=== PATIENT | female | born 1995 | race African-American/Black ===

== ENCOUNTER 2016-07-23 03:42 | Emergency (ER) | payer SELFPAY ==
[2016-03-05 11:46] VITALS: BP 136/71
[~2016-07-23] VITALS: Ht 167.6 cm; Wt 65.8 kg
[~2016-07-23 03:42] MED LIST: NAPR500T8 PO
--- NOTE | 2016-07-23 04:28 | ED.ADGEN ---
Past Medical History Past Medical History: No Pertinent History Additional Past Medical Histor: SEASONAL ALLERGIES Past Surgical History: No Surgical History Additional Information: 0.25 PPD Alcohol Use: Occasionally Drug Use: None Adult General Chief Complaint Chief Complaint: ANKLE PROBLEM HPI HPI Patient is a 21 year old woman, history of seasonal allergies, who presents to the emergency department with complaint of left ankle pain after a fall. Patient states that she drank a few glasses of wine, and was visiting the home of a friend, when she stepped out to view the back yard, did not really sit there was a small flight of steps leading out from the house. Patient states that she misstepped, twisting her ankle under her, and falling down. She states that she slid down the stairs. Did not strike her head, or neck. Denies loss of consciousness, denies any other pain or areas of complaints aside from her left ankle. Noted to have significant swelling in the lateral aspect left ankle. Patient states the event occurred about 30 minutes prior to arrival. Has not taken any medication prior to coming to the ED. No previous injuries. Review of Systems Review of Systems Constitutional: Denies fever or chills. [] Eyes: Denies change in visual acuity. [] HENT: Denies nasal congestion or sore throat. [] Respiratory: Denies cough or shortness of breath. [] Cardiovascular: Denies chest pain or edema. [] GI: Denies abdominal pain, nausea, vomiting, bloody stools or diarrhea. [] : Denies dysuria. [] Musculoskeletal: Denies back pain, complaining of left ankle pain. Integument: Denies rash. [] Neurologic: Denies headache, focal weakness or sensory changes. [] Endocrine: Denies polyuria or polydipsia. [] Lymphatic: Denies swollen glands. [] Psychiatric: Denies depression or anxiety. [] Current Medications Current Medications Current Medications Medications (Trade) Dose Ordered Sig/Elliott Start Time Stop Time Status Last Admin Dose Admin Naproxen (Naprosyn) 500 mg 1X ONCE 07/23/16 05:00 07/23/16 05:01 DC Allergies Allergies Allergies Coded Allergies Type Severity Reaction Last Updated Verified No Known Drug Allergies 03/05/16 No Physical Exam Physical Exam Constitutional: Well developed, well nourished, no acute distress, non-toxic appearance. [] HENT: Normocephalic, atraumatic, bilateral external ears normal, oropharynx moist, no oral exudates, nose normal. [] Eyes: PERRLA, EOMI, conjunctiva normal, no discharge. [] Neck: Normal range of motion, no tenderness, supple, no stridor. [] Cardiovascular:Heart rate regular rhythm, no murmur, S1, S2, rubs or gallops. [] Lungs & Thorax: Bilateral breath sounds clear to auscultation , no wheezing, rhonchi, rales. No chest wall tenderness or crepitus. [] Abdomen: Bowel sounds normal, soft, no tenderness, no masses, no pulsatile masses. [] Skin: Warm, dry, no erythema, no rash. [] Back: No tenderness, no CVA tenderness. [] Extremities: Patient with significant swelling noted to the lateral malleolus, pulses are intact bilaterally, patient is moving her toes, does complain of some pain along the knee as well, although no deformity or signs of trauma in this region, no external signs of trauma, no abrasions or lacerations. In all other extremities tenderness, no cyanosis, no clubbing, ROM intact, no edema. [ ] Neurologic: Alert and oriented X 3, normal motor function, normal sensory function, no focal deficits noted. [] Psychologic: Affect normal, judgement normal, mood normal. [] Current Patient Data Vital Signs Vital Signs Date Time Temp Pulse Resp B/P Pulse Ox O2 Delivery O2 Flow Rate FiO2 07/23/16 03:50 98.3 58 16 98 Room Air 98.3 EKG EKG Not indicated. [] Radiology/Procedures Radiology/Procedures Left ankle: Three-view: Patient with a distal minimally displaced comminuted fracture of the fibula. Fracture at the base of the third metatarsal. No soft tissue or other bony injuries identified. As interpreted by me. Left knee: Three-view: No fracture subluxation identified, no soft tissue or bony abnormalities. As interpreted by me. Left foot: Three-view: Fracture of the third metatarsal, no other soft tissue or bony abnormalities identified. As interpreted by me. Course & Med Decision Making Course & Med Decision Making Pertinent Labs and Imaging studies reviewed. (See chart for details) Patient with fracture of the third metatarsal of the left foot, at the base, and a distal fibula fracture. No other injuries or concerning findings identified. A posterior short-leg splint was applied with good effect. Patient performed crutch walking in the emergency department without difficulty. 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 She was driven to the hospital by a friend. Patient to follow-up with Dr. Jasso of orthopedics, instructed to call this morning for an appointment. Patient voiced understanding and agreement with plan as stated, also with medication instructions and precautions, patient discharged home with plan as above. Dragon Disclaimer Dragon Disclaimer This electronic medical record was generated, in whole or in part, using a voice recognition dictation system. Departure Impression: Primary Impression: Ankle fracture, left Additional Impression: Foot fracture Disposition: HOME, SELF-CARE Condition: IMPROVED Scripts Oxycodone/Apap 5-325 (Percocet 5-325 Mg Tablet)1 Each Tablet1 Tab PO PRN Q6HRS PRN PAIN #12 TAB Ref 0 Prov:PAPA FITZGERALD DO 07/23/16 Naproxen 250 Mg [id number] Mg PO BID PRN PAIN #10 Prov:PAPA FITZGERALD DO 07/23/16 Problem Qualifiers PAPA FITZGERALD DO Jul 23, 2016 04:28
[2016-07-23] MEDS ORDERED: NAPROXEN 500 MG TABLET PO ONE (05:00)
[2016-07-23] MEDS ORDERED: NAPR250T2 PO (05:32)
[2016-07-23] MEDS ORDERED: OXYC-323 PO (05:32)
--- NOTE | 2016-07-23 07:18 | RAD ---
Left knee, 3 views, 07/23/2016: History: Fall, pain and swelling No fracture or dislocation is identified. No significant joint effusion is evident. IMPRESSION: No acute left knee abnormality is detected. Left ankle, 3 views, 07/23/2016: There is a nondisplaced fracture of the distal fibula. The distal tibia is intact. No ankle dislocation is evident. There is moderate diffuse soft tissue swelling over the lateral malleolus. IMPRESSION: Acute nondisplaced fracture of the distal fibula. Left tibia and fibula, 2 views, 07/23/2016 No additional fracture or bony abnormality is detected. Left foot, 3 views, 07/23/2016: There is a fracture of the proximal third metatarsal. The fracture appears to be slightly comminuted with involvement of the proximal articular surface. No dislocation is evident. There is a lucency projected over the distal aspect of the cuboid bone laterally compatible with a small nondisplaced fracture. There is moderate subcutaneous edema about the foot. IMPRESSION: 1. Proximal third metatarsal fracture. 2. Small cuboid bone fracture.
== END 2016-07-23 05:39 | disposition home or self-care (01) ==
LOC: ER 03:42
DX: S82.452A Displaced comminuted fracture of shaft of left fibula, initial encounter for closed fracture (principal); S92.332A Displaced fracture of third metatarsal bone, left foot, initial encounter for closed fracture; F17.200 Nicotine dependence, unspecified, uncomplicated; X50.1XXA Overexertion from prolonged static or awkward postures, initial encounter; Y93.89 Activity, other specified; Y92.89 Other specified places as the place of occurrence of the external cause; Y99.8 Other external cause status
CPT/HCPCS: 29515; 73562; 73590; 73610; 73630; 99284-25

== ENCOUNTER 2017-01-11 14:57 | Emergency (ER) | payer SELFPAY ==
[~2017-01-11] VITALS: Ht 170.2 cm; Wt 68.0 kg
[~2017-01-11 14:57] MED LIST changes: +NAPR250T6 PO; +OXYC-323 PO
[2017-01-11 15:05] VITALS: BP 126/78
--- NOTE | 2017-01-11 15:28 | PHYS DOC ---
Past Medical History Past Medical History: Other Additional Past Medical Histor: SEASONAL ALLERGIES, foot fx left Past Surgical History: No Surgical History Alcohol Use: Occasionally Drug Use: None Adult General Chief Complaint Chief Complaint: FOOT INJURY PAIN HPI HPI Patient is a 21 year old female states the had fractured her left foot 6 months ago. She states she has been having numbness and tingling to the toes for the last 4 months. Patient states last night she decided to wear high heels and developed increase left foot and ankle pain. She states she continues to have swelling to the foot. She has been taking Naproxen for the pain. Review of Systems Review of Systems Constitutional: Denies fever or chills [] Eyes: Denies change in visual acuity, redness, or eye pain [] HENT: Denies nasal congestion or sore throat [] Respiratory: Denies cough or shortness of breath [] Cardiovascular: No additional information not addressed in HPI [] GI: Denies abdominal pain, nausea, vomiting, bloody stools or diarrhea [] : Denies dysuria or hematuria [] Musculoskeletal: Denies back pain. Left foot and ankle pain Integument: Denies rash or skin lesions [] Neurologic: Denies headache, focal weakness or sensory changes [] Endocrine: Denies polyuria or polydipsia [] Allergies Allergies Allergies Coded Allergies Type Severity Reaction Last Updated Verified No Known Drug Allergies 03/05/16 No Physical Exam Physical Exam Constitutional: Well developed, well nourished, no acute distress, non-toxic appearance. [] HENT: Normocephalic, atraumatic, bilateral external ears normal, oropharynx moist, no oral exudates, nose normal. [] Eyes: PERRLA, EOMI, conjunctiva normal, no discharge. [] Neck: Normal range of motion, no tenderness, supple, no stridor. [] Cardiovascular:Heart rate regular rhythm Lungs & Thorax: no respiratory distress noted Skin: Warm, dry, no erythema, no rash. [] Back: No tenderness Extremities: Left lateral ankle and left foot tenderness, no cyanosis, no clubbing, ROM intact, no edema. No significant swelling, no discoloration noted. Neurologic: Alert and oriented X 3, normal motor function, normal sensory function, no focal deficits noted. [] Psychologic: Affect normal, judgement normal, mood normal. [] Current Patient Data Vital Signs Vital Signs Date Time Temp Pulse Resp B/P (MAP) Pulse Ox O2 Delivery O2 Flow Rate FiO2 01/11/17 15:05 97.8 97 16 100 Room Air 97.8 EKG EKG [] Radiology/Procedures Radiology/Procedures [][id number] [place] [address] IMAGING REPORT Signed PATIENT: ALLISON MANUEL ACCOUNT: [id number] : 1995 LOCATION: ER AGE: 21 SEX: F EXAM STATUS: REG ER ORD. PHYSICIAN: ARRON STERLING APRN REASON: amkle pain after wearing heels last night PROCEDURE: ANKLE LEFT 3V Indications: History of fracture of the fibula 6 months ago. New onset of lateral side foot and ankle pain. 3 view left foot study: No acute fracture or dislocation or osteolytic process is seen. 3 view left ankle study: There is a nondisplaced oblique fracture of the distal left fibular shaft. The fracture appears healed. No acute radiolucent fracture line is seen. The mortise ankle joint is intact. IMPRESSION: Old healed fracture of the distal left fibula. No acute-appearing fracture. Electronically signed by: Erlin Luo MD (01/11/2017 4:31 PM) [facility] DICTATED and SIGNED BY: ERLIN LUO MD DATE: 01/11/17 1629 CC: ARRON STERLING APRN; NO PCP ~ [address] [address] IMAGING REPORT Signed PATIENT: ALLISON MANUEL ACCOUNT: [id number] : 1995 LOCATION: ER AGE: 21 SEX: F EXAM STATUS: REG ER ORD. PHYSICIAN: ARRON STERLING APRN REASON: hx of fracture 6 months ago, wore high heels last night increase pain lat PROCEDURE: FOOT LEFT 3V Indications: History of fracture of the fibula 6 months ago. New onset of lateral side foot and ankle pain. 3 view left foot study: No acute fracture or dislocation or osteolytic process is seen. 3 view left ankle study: There is a nondisplaced oblique fracture of the distal left fibular shaft. The fracture appears healed. No acute radiolucent fracture line is seen. The mortise ankle joint is intact. IMPRESSION: Old healed fracture of the distal left fibula. No acute-appearing fracture. Electronically signed by: Erlin Luo MD (01/11/2017 4:31 PM) [facility] DICTATED and SIGNED BY: ERLIN LUO MD DATE: 01/11/17 1629 CC: ARRON STERLING APRN; NO PCP ~ Course & Med Decision Making Course & Med Decision Making Pertinent Labs and Imaging studies reviewed. (See chart for details) X-rays were negative for any bony abnormalities. It did however show the past fracture that she's had 6 months ago. Patient will be placed in Tee wrap and a postop shoe. She was recommended to use ice packs and elevation as much as possible. Patient was encouraged to continue to use naproxen for pain and discomfort. Recommended when she has brakes at work to ice and elevated. Also patient was provided with signs and symptoms to return back to emergency department. Recommended that she follow-up with her orthopedic in the next week. Patient agrees with discharge instructions treatment regimens and follow- up recommendations. [] Dragon Disclaimer Dragon Disclaimer This electronic medical record was generated, in whole or in part, using a voice recognition dictation system. Departure Departure Impression: Primary Impression: Left foot pain Additional Impression: Left ankle pain Disposition: 01 HOME, SELF-CARE Condition: STABLE Referrals: NO PCP (PCP) BUCK ARCEO II, MD Patient Instructions: Ankle Sprain, Foot Sprain-Brief Additional Instructions: Activity as tolerate Avoid wearing high heel shoes. Tee wrap for the next week Post op shoe for the next week Ice packs on 20 minutes and off 20 minutes several times a day Elevation as much as possible Followup with orthopedic in 1 week' Return to emergency department as needed for signs and symptoms that become worse. Problem Qualifiers Additional Impression: Left ankle pain Chronicity: unspecified Qualified Codes: M25.572 - Pain in left ankle and joints of left foot ARRON STERLING APRN Jan 11, 2017 15:27
--- NOTE | 2017-01-11 16:35 | RAD ---
Indications: History of fracture of the fibula 6 months ago. New onset of lateral side foot and ankle pain. 3 view left foot study: No acute fracture or dislocation or osteolytic process is seen. 3 view left ankle study: There is a nondisplaced oblique fracture of the distal left fibular shaft. The fracture appears healed. No acute radiolucent fracture line is seen. The mortise ankle joint is intact. IMPRESSION: Old healed fracture of the distal left fibula. No acute-appearing fracture. Electronically signed by: Silverio Luo MD (01/11/2017 4:31 PM) [facility]
--- NOTE | 2017-01-11 16:35 | RAD ---
Indications: History of fracture of the fibula 6 months ago. New onset of lateral side foot and ankle pain. 3 view left foot study: No acute fracture or dislocation or osteolytic process is seen. 3 view left ankle study: There is a nondisplaced oblique fracture of the distal left fibular shaft. The fracture appears healed. No acute radiolucent fracture line is seen. The mortise ankle joint is intact. IMPRESSION: Old healed fracture of the distal left fibula. No acute-appearing fracture. Electronically signed by: Silverio Luo MD (01/11/2017 4:31 PM) [facility]
== END 2017-01-11 16:58 | disposition home or self-care (01) ==
LOC: ER 14:57
DX: M25.572 Pain in left ankle and joints of left foot (principal); R20.0 Anesthesia of skin; M79.672 Pain in left foot; R20.2 Paresthesia of skin; M79.89 Other specified soft tissue disorders
CPT/HCPCS: 73610; 73630; 99284

== ENCOUNTER 2017-11-30 21:12 | Emergency (ER) | payer OTHER | END 2017-11-30 23:55 | disposition home or self-care (01) | LOC: ER 23:55 | DX: S93.402A Sprain of unspecified ligament of left ankle, initial encounter (principal); W01.0XXA Fall on same level from slipping, tripping and stumbling without subsequent striking against object, initial encounter; X50.9XXA Other and unspecified overexertion or strenuous movements or postures, initial encounter; Y93.89 Activity, other specified; Y99.8 Other external cause status; Y92.89 Other specified places as the place of occurrence of the external cause | CPT/HCPCS: 29515; 73610; 99284-25 ==

== ENCOUNTER 2018-01-26 22:42 | Emergency (ER) | payer OTHER ==
[~2018-01-26] VITALS: Ht 167.6 cm; Wt 65.8 kg
[2018-01-27 00:06] VITALS: BP 129/86
[2018-01-27] MEDS ORDERED: NEOMY/BACITR/POLYMYXIN OINT PACKET. TP ONE (00:30)
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
== END 2018-01-27 00:23 | disposition home or self-care (01) ==
LOC: ER 22:42
DX: T24.212A Burn of second degree of left thigh, initial encounter (principal); X12.XXXA Contact with other hot fluids, initial encounter; Y93.89 Activity, other specified; Y92.89 Other specified places as the place of occurrence of the external cause; Y99.0 Civilian activity done for income or pay
CPT/HCPCS: 16000; 99284

== ENCOUNTER 2018-02-27 17:04 | Emergency (ER) | payer OTHER ==
[~2018-02-27] VITALS: Ht 170.2 cm; Wt 77.1 kg
[2018-02-27 17:44] LABS: BILIRUBIN,URINE NEGATIVE (NEG); CLARITY,URINE CLEAR; COLOR,URINE YELLOW; NITRITE,URINE NEGATIVE (NEG); PROTEIN,URINE NEGATIVE (NEG-TRACE)
[2018-02-27 17:58] LABS: BACTERIA,URINE 0 /HPF (0-FEW); RBC,URINE 0 /HPF (0-2); SQUAMOUS EPITHELIAL CELL,UR FEW /LPF; WBC,URINE RARE /HPF (0-4)
[2018-02-27] MEDS ORDERED: IV NORMAL SALINE 1000ML BAG 1,000 ML IV ONE (18:00)
[2018-02-27] MEDS ORDERED: fentaNYL PF VIAL 100 MCG/2 ML VIAL IV ONE (18:00)
[2018-02-27] MEDS ORDERED: ONDANSETRON PF 4 MG/2 ML VIAL. IV ONE (18:00)
[2018-02-27 18:13] LABS: BASO % 1 % (0-3); EOS # 0.4 x10^3/uL (0.0-0.7); EOS % 5 % (0-3); HEMATOCRIT 36.2 % (36.0-47.0); HEMOGLOBIN 12.1 g/dL (12.0-15.5); LYMPH # 2.8 x10^3/uL (1.0-4.8); LYMPH % 34 % (24-48); MEAN CORPUSCULAR HEMOGLOBIN 28 pg (25-35); MEAN CORPUSCULAR HGB CONC 33 g/dL (31-37); MEAN CORPUSCULAR VOLUME 85 fL (79-100); MONO # 0.8 x10^3/uL (0.0-1.1); MONO % 10 % (0-9); NEUT # 4.1 x10^3uL (1.8-7.7); NEUT % 51 % (31-73); PLATELET COUNT 236 x10^3/uL (140-400); RED BLOOD COUNT 4.28 x10^6/uL (3.50-5.40); RED CELL DISTRIBUTION WIDTH 13.8 % (11.5-14.5); WHITE BLOOD COUNT 8.1 x10^3/uL (4.0-11.0)
[2018-02-27 18:19] LABS: CALCIUM 9.2 mg/dL (8.5-10.1); CREATININE 0.8 mg/dL (0.6-1.0); GFR 106.6; POTASSIUM 4.2 mmol/L (3.5-5.1)
--- NOTE | 2018-02-27 18:20 | PHYS DOC ---
Past Medical History Past Medical History: No Pertinent History Additional Past Medical Histor: SEASONAL ALLERGIES, foot fx left Past Surgical History: No Surgical History Alcohol Use: None Drug Use: None Adult General Chief Complaint Chief Complaint: BACK PAIN OR INJURY HPI HPI Patient is a 22 year old female who presents with right flank and pelvic pain for the last 3-4 days. Patient reports the pain is worse with movement. She denies having taken anything at home for pain. She is unsure of her status. She denies any trauma to the area. She reports pain with intercourse, but denies vaginal discharge. She denies any loss of bladder or bowel control. Review of Systems Review of Systems Constitutional: Denies fever or chills [] Respiratory: Denies cough or shortness of breath [] Cardiovascular: Denies chest pain or palpitations GI: Reports right lower quadrant/pelvic pain that radiates from the right flank. Denies nausea, vomiting or diarrhea [] : Reports dyspareunia. Denies dysuria or hematuria [] Musculoskeletal: Reports right flank pain Integument: Denies rash or skin lesions [] Neurologic: Denies headache, focal weakness or sensory changes. Denies loss of bladder or bowel control [] All other systems were reviewed and found to be within normal limits, except as documented in this note. Current Medications Current Medications Current Medications Medications (Trade) Dose Ordered Sig/[facility] Start Time Stop Time Status Last Admin Dose Admin Fentanyl Citrate (Fentanyl 2ml Vial) 50 mcg 1X ONCE 02/27/18 18:00 02/27/18 18:01 DC Ondansetron HCl (Zofran) 4 mg 1X ONCE 02/27/18 18:00 02/27/18 18:01 DC Sodium Chloride 1,000 ml @ 1,000 mls/hr 1X ONCE 02/27/18 18:00 02/27/18 18:59 DC 02/27/18 18:02 1,000 MLS/HR Allergies Allergies Allergies Coded Allergies Type Severity Reaction Last Updated Verified No Known Drug Allergies 03/05/16 No Physical Exam Physical Exam Constitutional: Well developed, well nourished, no acute distress, non-toxic appearance. [] HENT: Normocephalic, atraumatic Eyes: PERRLA, EOMI, conjunctiva normal, no discharge. [] Neck: Normal range of motion, no tenderness, supple, no stridor. [] Cardiovascular:Heart rate regular rhythm, no murmur [] Lungs & Thorax: Bilateral breath sounds clear to auscultation [] Abdomen: Bowel sounds normal, soft, Right lower quadrant/pelvic pain Skin: Warm, dry, no erythema, no rash. [] Back: Right CVA tenderness. [] Neurologic: Alert and oriented X 3, normal motor function, normal sensory function, no focal deficits noted. [] Psychologic: Affect normal, judgement normal, mood normal. [] Current Patient Data Vital Signs Vital Signs Date Time Temp Pulse Resp B/P (MAP) Pulse Ox O2 Delivery O2 Flow Rate FiO2 02/27/18 18:30 120/66 (84) 02/27/18 17:30 98.3 100 18 97 Room Air 98.3 Lab Values Laboratory Tests Test 02/27/18 17:23 02/27/18 17:35 02/27/18 17:58 Urine Collection Type Unknown Urine Color Yellow Urine Clarity Clear Urine pH 7.0 Urine Specific [place] >=1.030 Urine Protein Negative mg/dL (NEG-TRACE) Urine Glucose (UA) Negative mg/dL (NEG) Urine Ketones (Stick) Negative mg/dL (NEG) Urine Blood Negative (NEG) Urine Nitrite Negative (NEG) Urine Bilirubin Negative (NEG) Urine Urobilinogen Dipstick 1.0 mg/dL (0.2 mg/dL) Urine Leukocyte Esterase Negative (NEG) Urine RBC 0 /HPF (0-2) Urine WBC Rare /HPF (0-4) Urine Squamous Epithelial Cells Few /LPF Urine Bacteria 0 /HPF (0-FEW) Urine Mucus Slight /LPF POC Urine HCG, Qualitative Hcg positive (Negative) White Blood Count 8.1 x10^3/uL (4.0-11.0) Red Blood Count 4.28 x10^6/uL (3.50-5.40) Hemoglobin 12.1 g/dL (12.0-15.5) Hematocrit 36.2 % (36.0-47.0) Mean Corpuscular Volume 85 fL (79-100) Mean Corpuscular Hemoglobin 28 pg (25-35) Mean Corpuscular Hemoglobin Concent 33 g/dL (31-37) Red Cell Distribution Width 13.8 % (11.5-14.5) Platelet Count 236 x10^3/uL (140-400) Neutrophils (%) (Auto) 51 % (31-73) Lymphocytes (%) (Auto) 34 % (24-48) Monocytes (%) (Auto) 10 % (0-9) H Eosinophils (%) (Auto) 5 % (0-3) H Basophils (%) (Auto) 1 % (0-3) Neutrophils # (Auto) 4.1 x10^3uL (1.8-7.7) Lymphocytes # (Auto) 2.8 x10^3/uL (1.0-4.8) Monocytes # (Auto) 0.8 x10^3/uL (0.0-1.1) Eosinophils # (Auto) 0.4 x10^3/uL (0.0-0.7) Basophils # (Auto) 0.0 x10^3/uL (0.0-0.2) Maternal Serum HCG Beta Subunit 18 mIU/mL (0-5) H Sodium Level 139 mmol/L (136-145) Potassium Level 4.2 mmol/L (3.5-5.1) Chloride Level 104 mmol/L (98-107) Carbon Dioxide Level 29 mmol/L (21-32) Anion Gap 6 (6-14) Blood Urea Nitrogen 12 mg/dL (7-20) Creatinine 0.8 mg/dL (0.6-1.0) Estimated GFR (Cockcroft-Gault) 106.6 BUN/Creatinine Ratio 15 (6-20) Glucose Level 88 mg/dL (70-99) Calcium Level 9.2 mg/dL (8.5-10.1) Total Bilirubin 0.1 mg/dL (0.2-1.0) L Aspartate Amino Transferase (AST) 14 U/L (15-37) L Alanine Aminotransferase (ALT) 18 U/L (14-59) Alkaline Phosphatase 41 U/L (46-116) L Total Protein 7.8 g/dL (6.4-8.2) Albumin 3.5 g/dL (3.4-5.0) Albumin/Globulin Ratio 0.8 (1.0-1.7) L Laboratory Tests 02/27/18 17:58 Laboratory Tests 02/27/18 17:58 EKG EKG [] Radiology/Procedures Radiology/Procedures PROCEDURE: OB <14 WKS W/TV Examination: OB <14 WKS W/TV History: rt sided abd pain, constipation, just found out she was preg, lmp 01/31/18

no gs or pole seen
small amt of simple ff in post cul de sac
iso ro lesion probable corpus luteum Comparison/Correlation: None Findings: OB ultrasound exam was performed. Transabdominal and transvaginal technique were utilized. Endometrium is markedly thickened measuring up to 1.3 cm. Myometrium is normal. Uterus measures 8.3 cm x 6 cm x 4.2 cm. Free fluid is present in the cul-de-sac. Right adnexa measures 2.5 cm x 3 cm a 2.6 cm. Left adnexa measures 3.3 cm x 2.2 cm x 2.5 cm. There is a right ovarian hypoechoic structure measuring 2 cm x 2.2 cm x 2.1 cm. Flow about this lesion is suggested. No flow within it. Impression: No intrauterine gestation. Right adnexal lesion is present. This may represent a corpus a cyst. Considering there is no intrauterine gestation and the patient is reportedly , consider interval follow-up serial beta hCG and follow-up ultrasound exam to assess for possible ectopic gestation. Pelvic free fluid is present and may be physiologic. Electronically signed by: Ivan Morris MD (02/27/2018 7:04 PM) [facility][] Course & Med Decision Making Course & Med Decision Making Pertinent Labs and Imaging studies reviewed. (See chart for details) Plan: repeat bhcg in 3 and 6 days. f/u with [employer] for f/u US. lortab rx, return precautions reviewed Rey Disclaimer Rey Disclaimer This electronic medical record was generated, in whole or in part, using a voice recognition dictation system. Departure Departure Impression: Primary Impression: Pelvic pain affecting in first trimester, antepartum Disposition: 01 HOME, SELF-CARE Condition: GOOD Referrals: SILVESTRE GOLDMAN Jr, MD Patient Instructions: Abdominal Pain During Additional Instructions: You will need to have your blood drawn on Friday and Friday of next week. You will need to call OB and let them know you are having pain and we could not rule out ectopic (tubal ). Scripts Hydrocodone/Apap 5-325 (NORCO 5-325 TABLET) 1 Each Tablet 1 TAB PO PRN Q6HRS PRN for PAIN, #14 TAB 0 Refills Prov: TEOFILO CORTEZ APRN 02/27/18 Attending Signature Attending Signature PI have reviewed the PA/BUFFER CHROME's note and plan of care. I was available for consultation as needed during the patient's visit in the emergency department. I agree with the clinical impression, plan, and disposition. TEOFILO CORTEZ APRN Feb 27, 2018 18:20 TIFFANI CHARLES DO Feb 28, 2018 17:00
[2018-02-27 18:27] LABS: ALBUMIN 3.5 g/dL (3.4-5.0); ALBUMIN/GLOBULIN RATIO 0.8 (1.0-1.7); TOTAL BILIRUBIN 0.1 mg/dL (0.2-1.0); TOTAL PROTEIN 7.8 g/dL (6.4-8.2)
[2018-02-27 18:30] VITALS: BP 120/66
--- NOTE | 2018-02-27 19:07 | RAD ---
Examination: OB <14 WKS W/TV History: rt sided abd pain, constipation, just found out she was preg, lmp 01/31/18

no gs or pole seen
small amt of simple ff in post cul de sac
iso ro lesion probable corpus luteum Comparison/Correlation: None Findings: OB ultrasound exam was performed. Transabdominal and transvaginal technique were utilized. Endometrium is markedly thickened measuring up to 1.3 cm. Myometrium is normal. Uterus measures 8.3 cm x 6 cm x 4.2 cm. Free fluid is present in the cul-de-sac. Right adnexa measures 2.5 cm x 3 cm a 2.6 cm. Left adnexa measures 3.3 cm x 2.2 cm x 2.5 cm. There is a right ovarian hypoechoic structure measuring 2 cm x 2.2 cm x 2.1 cm. Flow about this lesion is suggested. No flow within it. Impression: No intrauterine gestation. Right adnexal lesion is present. This may represent a corpus a cyst. Considering there is no intrauterine gestation and the patient is reportedly , consider interval follow-up serial beta hCG and follow-up ultrasound exam to assess for possible ectopic gestation. Pelvic free fluid is present and may be physiologic. Electronically signed by: Ivan Morris MD (02/27/2018 7:04 PM) [facility]
[2018-02-27] MEDS ORDERED: HYDR-971 PO (19:34)
[2018-03-02 15:27] LABS: GC PROBE Negative (Negative)
== END 2018-02-27 19:40 | disposition home or self-care (01) ==
LOC: ER 17:04
DX: O26.891 Other specified pregnancy related conditions, first trimester (principal); R10.2 Pelvic and perineal pain; R10.31 Right lower quadrant pain; Z3A.00 Weeks of gestation of pregnancy not specified
CPT/HCPCS: 36415; 76801; 76817; 80053; 81001; 81025; 84702; 85025; 87491; 87591; 99285; J7030; Q0111

== ENCOUNTER → 2018-03-02 | Outpatient (CLI) | payer OTHER ==
[2018-02-27 18:30] VITALS: BP 120/66
[~2018-03-02] MED LIST changes: +HYDR-3164 PO; -OXYC-323 PO; +OXYC1TAB15 PO
== END | disposition home or self-care (01) ==
LOC: LAB 09:18
PROVIDERS: ATTEND Obstetrics & Gynecology
DX: O26.891 Other specified pregnancy related conditions, first trimester (principal); Z3A.08 8 weeks gestation of pregnancy
CPT/HCPCS: 36415; 84702

== ENCOUNTER 2018-06-22 12:34 | Emergency (ER) | payer OTHER ==
[~2018-06-22] VITALS: Ht 167.6 cm; Wt 81.6 kg
[2018-06-22 13:24] VITALS: BP 130/76
--- NOTE | 2018-06-22 14:08 | RAD ---
EXAM: Left foot, 3 views. HISTORY: Fall. COMPARISON: None. FINDINGS: 3 views left foot are obtained. There is no fracture, dislocation or subluxation. IMPRESSION: No acute osseous finding. Electronically signed by: Laura Zaragoza MD (06/22/2018 2:05 PM) [place] [id number]
--- NOTE | 2018-06-22 14:27 | PHYS DOC ---
Past Medical History Past Medical History: No Pertinent History Additional Past Medical Histor: SEASONAL ALLERGIES, foot fx left Past Surgical History: No Surgical History Alcohol Use: None Drug Use: None Adult General Chief Complaint Chief Complaint: MECHANICAL FALL [facility] HPI Patient is a 22 year old female who presents with left foot pain after she fell on the ice chest today. She states that her knee went one direction and her foot twisted in the other. She is complaining of pain over the first metatarsal. She denies any other injury. She is able to bear weight on that extremity. Review of Systems Review of Systems Constitutional: Denies fever or chills [] Respiratory: Denies cough or shortness of breath [] Cardiovascular: No additional information not addressed in HPI [] GI: Denies abdominal pain, nausea, vomiting, bloody stools or diarrhea [] : Denies dysuria or hematuria [] Musculoskeletal: See history of present illness Integument: Denies rash or skin lesions [] Neurologic: Denies headache, focal weakness or sensory changes [] Endocrine: Denies polyuria or polydipsia [] All other systems were reviewed and found to be within normal limits, except as documented in this note. Allergies Allergies Allergies Coded Allergies Type Severity Reaction Last Updated Verified No Known Drug Allergies 03/05/16 No Physical Exam Physical Exam Constitutional: Well developed, well nourished, no acute distress, non-toxic appearance. [] Cardiovascular:Heart rate regular rhythm, no murmur [] Lungs & Thorax: Bilateral breath sounds clear to auscultation [] Abdomen: Bowel sounds normal, soft, no tenderness, no masses, no pulsatile masses. [] Skin: Warm, dry, no erythema, no rash. [] Back: No tenderness, no CVA tenderness. [] Extremities: tenderness over mid left first metatarsal, no gross deformity noted , no cyanosis, no clubbing, ROM intact, no edema. [] Neurologic: Alert and oriented X 3, normal motor function, normal sensory function, no focal deficits noted. [] Psychologic: Affect normal, judgement normal, mood normal. [] Current Patient Data Vital Signs Vital Signs Date Time Temp Pulse Resp B/P (MAP) Pulse Ox O2 Delivery O2 Flow Rate FiO2 06/22/18 13:24 98.2 88 16 130/76 (94) 100 Room Air 98.2 EKG EKG [] Radiology/Procedures Radiology/Procedures []PATIENT: ALLISON MANUEL SACCOUNT: [id number]#: [id number] : 1995 LOCATION: ER AGE: 22 SEX: F EXAM STATUS: REG ER ORD. PHYSICIAN: NADIR SALAS APRN REASON: fell on ice PROCEDURE: FOOT LEFT 3V EXAM: Left foot, 3 views. HISTORY: Fall. COMPARISON: None. FINDINGS: 3 views left foot are obtained. There is no fracture, dislocation or subluxation. IMPRESSION: No acute osseous finding. Electronically signed by: Laura Live MD (06/22/2018 2:05 PM) [place] [id number] DICTATED and SIGNED BY: LAURA LIVE MD DATE: 06/22/18 1400 Course & Med Decision Making Course & Med Decision Making Pertinent Labs and Imaging studies reviewed. (See chart for details) []The patient is to follow-up with podiatry for a recheck in one week. She may take ibuprofen or Tylenol for pain. She can RICE the extremity for comfort. Dragon Disclaimer Dragon Disclaimer This electronic medical record was generated, in whole or in part, using a voice recognition dictation system. Departure Departure Impression: Primary Impression: Left foot pain Disposition: 01 HOME, SELF-CARE Condition: STABLE Referrals: NO PCP (PCP) MARIAN AGUILAR DPM Patient Instructions: Foot Contusion Additional Instructions: You may take ibuprofen or Tylenol for pain. Follow-up with podiatry for further evaluation of this foot pain. NADIR SALAS APRN Jun 22, 2018 14:27
== END 2018-06-22 14:28 | disposition home or self-care (01) ==
LOC: ER 12:34
DX: M79.672 Pain in left foot (principal); G89.11 Acute pain due to trauma; Z87.81 Personal history of (healed) traumatic fracture; W00.0XXA Fall on same level due to ice and snow, initial encounter; Y93.89 Activity, other specified; Y92.89 Other specified places as the place of occurrence of the external cause; Y99.8 Other external cause status
CPT/HCPCS: 73630; 99283

== ENCOUNTER 2018-09-04 12:58 | Emergency (ER) | payer OTHER ==
[~2018-09-04] VITALS: Ht 170.2 cm; Wt 81.6 kg
[2018-09-04 14:15] VITALS: BP 146/93
[2018-09-04 14:37] LABS: BILIRUBIN,URINE NEGATIVE (NEG); CLARITY,URINE CLEAR; COLOR,URINE YELLOW; NITRITE,URINE NEGATIVE (NEG); PH,URINE 7.5; PROTEIN,URINE NEGATIVE (NEG-TRACE); UROBILINOGEN,URINE 0.2 mg/dL (0.2 mg/dL)
[2018-09-04 14:43] LABS: BACTERIA,URINE FEW /HPF (0-FEW); RBC,URINE 0 /HPF (0-2); SQUAMOUS EPITHELIAL CELL,UR FEW /LPF; WBC,URINE RARE /HPF (0-4)
--- NOTE | 2018-09-04 15:01 | PHYS DOC ---
Past Medical History Past Medical History: No Pertinent History, Other Additional Past Medical Histor: SEASONAL ALLERGIES, foot fx left Past Surgical History: No Surgical History Alcohol Use: None Drug Use: None Adult General Chief Complaint Chief Complaint: BACK PAIN - NO INJURY [facility] HPI Patient is a 23 year old female presents to the ED complaining of back pain. States she had some back pain and when her mother had back pain she went to the doctor and was diagnosed with a urinary tract infection. Patient LMP was one month ago. Patient states there is a possibility that she could be . Complains of some possible urinary frequency. Patient denies injury, abdominal pain, vaginal discharge/bleeding, chest pain, shortness of breath, fever, hematuria, headache. Review of Systems Review of Systems Constitutional: Denies fever or chills [] Eyes: Denies change in visual acuity, redness, or eye pain [] HENT: Denies nasal congestion or sore throat [] Respiratory: Denies cough or shortness of breath [] Cardiovascular: No additional information not addressed in HPI [] GI: Denies abdominal pain, nausea, vomiting, bloody stools or diarrhea [] : Complains of urinary frequency. Denies dysuria or hematuria [] Musculoskeletal: Denies back pain or joint pain [] Integument: Denies rash or skin lesions [] Neurologic: Denies headache, focal weakness or sensory changes [] All other systems were reviewed and found to be within normal limits, except as documented in this note. Allergies Allergies Allergies Coded Allergies Type Severity Reaction Last Updated Verified No Known Drug Allergies 03/05/16 No Physical Exam Physical Exam Constitutional: Well developed, well nourished, no acute distress, non-toxic appearance. [] HENT: Normocephalic, atraumatic Eyes: PERRLA, EOMI, conjunctiva normal, no discharge. [] Neck: Normal range of motion, no tenderness, supple, no stridor. [] Cardiovascular:Heart rate regular rhythm, no murmur [] Lungs & Thorax: Bilateral breath sounds clear to auscultation [] Abdomen: Bowel sounds normal, soft, no tenderness, no masses, no pulsatile masses. [] Skin: Warm, dry, no erythema, no rash. [] Back: No tenderness, no CVA tenderness. [] Extremities: Mild paraspinal lumbar tenderness. No bony tenderness, no cyanosis, no clubbing, ROM intact, no edema. NV intact. [] Neurologic: Alert and oriented X 3, normal motor function, normal sensory function, no focal deficits noted. DTR's intact.[] Psychologic: Affect normal, judgement normal, mood normal. [] Current Patient Data Vital Signs Vital Signs Date Time Temp Pulse Resp B/P (MAP) Pulse Ox O2 Delivery O2 Flow Rate FiO2 09/04/18 14:15 98.1 97 16 146/93 (110) 100 Room Air 98.1 Lab Values Laboratory Tests Test 09/04/18 14:23 09/04/18 14:26 Urine Collection Type Void Urine Color Yellow Urine Clarity Clear Urine pH 7.5 Urine Specific [facility] 1.025 Urine Protein Negative mg/dL (NEG-TRACE) Urine Glucose (UA) Negative mg/dL (NEG) Urine Ketones (Stick) Negative mg/dL (NEG) Urine Blood Negative (NEG) Urine Nitrite Negative (NEG) Urine Bilirubin Negative (NEG) Urine Urobilinogen Dipstick 0.2 mg/dL (0.2 mg/dL) Urine Leukocyte Esterase Negative (NEG) Urine RBC 0 /HPF (0-2) Urine WBC Rare /HPF (0-4) Urine Squamous Epithelial Cells Few /LPF Urine Bacteria Few /HPF (0-FEW) POC Urine HCG, Qualitative Hcg positive (Negative) EKG EKG [] Radiology/Procedures Radiology/Procedures [] Course & Med Decision Making Course & Med Decision Making Pertinent Labs and Imaging studies reviewed. (See chart for details) []Discussed imaging findings with patient. No CVA tenderness. Pain in back is exacerbated by ROM and is paraspinal. No injury. Patient able to ambulate without assistance. Positive for . Patient has no related symptoms. 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 Patient has one [id number] child. Denies vaginal bleeding/vaginal discharge, abdominal pain, nausea/vomiting, fever, weakness or headache. Discussed the importance of follow-up and reasons to return to the ED. Patient understands and agrees with plan. Dragon Disclaimer Dragon Disclaimer This electronic medical record was generated, in whole or in part, using a voice recognition dictation system. Departure Departure Impression: Primary Impression: Back pain Additional Impression: test positive Disposition: HOME, SELF-CARE Condition: IMPROVED Referrals: NO PCP (PCP) SILVESTRE GOLDMAN Jr, MD Patient Instructions: Back Pain, Adult, Problem Qualifiers CLAY MENA September 04, 2018 15:01
== END 2018-09-04 15:19 | disposition home or self-care (01) ==
LOC: ER 12:58
DX: Z33.1 Pregnant state, incidental (principal); M54.5 Low back pain; R35.0 Frequency of micturition
CPT/HCPCS: 81001; 81025; 99283

== ENCOUNTER 2019-04-30 22:33 | Emergency (ER) | payer MEDICAID, OTHER ==
[~2019-04-30] VITALS: Ht 167.6 cm; Wt 99.8 kg
[2019-04-30 23:29] LABS: BILIRUBIN,URINE NEGATIVE (NEG); CLARITY,URINE CLEAR; COLOR,URINE YELLOW; NITRITE,URINE NEGATIVE (NEG); PH,URINE 6.5; PROTEIN,URINE 30 mg/dL (NEG-TRACE); UROBILINOGEN,URINE 0.2 mg/dL (0.2 mg/dL)
[2019-04-30] MEDS ORDERED: IV NORMAL SALINE 1000ML BAG 1,000 ML IV SCH (23:30)
[2019-04-30 23:40] LABS: BACTERIA,URINE FEW /HPF (0-FEW); RBC,URINE TNTC /HPF (0-2); SQUAMOUS EPITHELIAL CELL,UR MOD /LPF
[2019-05-01 00:03] LABS: BASO # 0.1 x10^3/uL (0.0-0.2); BASO % 1 % (0-3); EOS # 0.2 x10^3/uL (0.0-0.7); EOS % 2 % (0-3); HEMATOCRIT 34.9 % (36.0-47.0); HEMOGLOBIN 11.2 g/dL (12.0-15.5); LYMPH # 1.4 x10^3/uL (1.0-4.8); LYMPH % 17 % (24-48); MEAN CORPUSCULAR HEMOGLOBIN 27 pg (25-35); MEAN CORPUSCULAR HGB CONC 32 g/dL (31-37); MEAN CORPUSCULAR VOLUME 85 fL (79-100); MONO # 0.4 x10^3/uL (0.0-1.1); MONO % 5 % (0-9); NEUT # 6.3 x10^3/uL (1.8-7.7); NEUT % 76 % (31-73); PLATELET COUNT 214 x10^3/uL (140-400); RED BLOOD COUNT 4.12 x10^6/uL (3.50-5.40); RED CELL DISTRIBUTION WIDTH 13.4 % (11.5-14.5); WHITE BLOOD COUNT 8.3 x10^3/uL (4.0-11.0)
--- NOTE | 2019-05-01 00:10 | PHYS DOC ---
Past Medical History Past Medical History: Other Additional Past Medical Histor: PRE ECLAMPSIA Past Surgical History: No Surgical History Alcohol Use: None Drug Use: None Adult General Chief Complaint Chief Complaint: HYPERTENSION HPI HPI Patient is a 23 year old female who presents with patient had a vaginal at [facility] on April 26, 2019. Patient was diagnosed with preeclampsia as she was induced. She states she was never on any medications. She states that she had just gotten done caring in heavy 40 packs of water and the car seat then started making dinner and began feeling lightheaded. She states she took her blood pressure and it was 160/115. Patient states she also has a frontal headache that she rates at a 4 out of 10. States she has not taken any pain medications. States she is slightly photophobic at times. Patient states she called the nurse line at [facility] and they stated that she needed to come in to the emergency room. Review of Systems Review of Systems Constitutional: Denies fever or chills [] Eyes: Denies change in visual acuity, redness, or eye pain [] HENT: Denies nasal congestion or sore throat [] Respiratory: Denies cough or shortness of breath [] Cardiovascular: No additional information not addressed in HPI [] GI: Denies abdominal pain, nausea, vomiting, bloody stools or diarrhea [] : Denies dysuria or hematuria [] Musculoskeletal: Denies back pain or joint pain [] Integument: Denies rash or skin lesions [] Neurologic: Denies headache, focal weakness or sensory changes [] Endocrine: Denies polyuria or polydipsia [] All other systems were reviewed and found to be within normal limits, except as documented in this note. Current Medications Current Medications Current Medications Medications (Trade) Dose Ordered Sig/Elliott Start Time Stop Time Status Last Admin Dose Admin Sodium Chloride 1,000 ml @ 1,000 mls/hr Q1H 04/30/19 23:30 05/01/19 00:29 DC Allergies Allergies Allergies Coded Allergies Type Severity Reaction Last Updated Verified No Known Drug Allergies 03/05/16 No Physical Exam Physical Exam Constitutional: Well developed, well nourished, no acute distress, non-toxic appearance. [] HENT: Normocephalic, atraumatic, bilateral external ears normal, oropharynx moist, no oral exudates, nose normal. [] Eyes: PERRLA, EOMI, conjunctiva normal, no discharge. [] Neck: Normal range of motion, no tenderness, supple, no stridor. [] Cardiovascular:Heart rate regular rhythm, no murmur [] Lungs & Thorax: Bilateral breath sounds clear to auscultation [] Abdomen: Bowel sounds normal, soft, no tenderness, no masses, no pulsatile masses. [] Skin: Warm, dry, no erythema, no rash. [] Back: No tenderness, no CVA tenderness. [] Extremities: No tenderness, no cyanosis, no clubbing, ROM intact, no edema. [] Neurologic: Alert and oriented X 3, normal motor function, normal sensory function, no focal deficits noted. [] Psychologic: Affect normal, judgement normal, mood normal. [] Current Patient Data Vital Signs Vital Signs Date Time Temp Pulse Resp B/P (MAP) Pulse Ox O2 Delivery O2 Flow Rate FiO2 04/30/19 22:40 98.3 81 16 151/95 (113) 100 Room Air 98.3 Lab Values Laboratory Tests Test 04/30/19 23:00 04/30/19 23:55 Urine Collection Type Unknown Urine Color Yellow Urine Clarity Clear Urine pH 6.5 Urine Specific [place] 1.020 Urine Protein 30 mg/dL (NEG-TRACE) Urine Glucose (UA) Negative mg/dL (NEG) Urine Ketones (Stick) Negative mg/dL (NEG) Urine Blood Large (NEG) Urine Nitrite Negative (NEG) Urine Bilirubin Negative (NEG) Urine Urobilinogen Dipstick 0.2 mg/dL (0.2 mg/dL) Urine Leukocyte Esterase Moderate (NEG) Urine RBC Tntc /HPF (0-2) Urine WBC 5-10 /HPF (0-4) Urine Squamous Epithelial Cells Mod /LPF Urine Bacteria Few /HPF (0-FEW) Urine Mucus Slight /LPF White Blood Count 8.3 x10^3/uL (4.0-11.0) Red Blood Count 4.12 x10^6/uL (3.50-5.40) Hemoglobin 11.2 g/dL (12.0-15.5) L Hematocrit 34.9 % (36.0-47.0) L Mean Corpuscular Volume 85 fL (79-100) Mean Corpuscular Hemoglobin 27 pg (25-35) Mean Corpuscular Hemoglobin Concent 32 g/dL (31-37) Red Cell Distribution Width 13.4 % (11.5-14.5) Platelet Count 214 x10^3/uL (140-400) Neutrophils (%) (Auto) 76 % (31-73) H Lymphocytes (%) (Auto) 17 % (24-48) L Monocytes (%) (Auto) 5 % (0-9) Eosinophils (%) (Auto) 2 % (0-3) Basophils (%) (Auto) 1 % (0-3) Neutrophils # (Auto) 6.3 x10^3/uL (1.8-7.7) Lymphocytes # (Auto) 1.4 x10^3/uL (1.0-4.8) Monocytes # (Auto) 0.4 x10^3/uL (0.0-1.1) Eosinophils # (Auto) 0.2 x10^3/uL (0.0-0.7) Basophils # (Auto) 0.1 x10^3/uL (0.0-0.2) Prothrombin Time 13.6 SEC (11.7-14.0) Prothrombin Time INR 1.1 (0.8-1.1) Sodium Level 141 mmol/L (136-145) Potassium Level 3.5 mmol/L (3.5-5.1) Chloride Level 105 mmol/L (98-107) Carbon Dioxide Level 26 mmol/L (21-32) Anion Gap 10 (6-14) Blood Urea Nitrogen 8 mg/dL (7-20) Creatinine 0.8 mg/dL (0.6-1.0) Estimated GFR (Cockcroft-Gault) 105.8 BUN/Creatinine Ratio 10 (6-20) Glucose Level 116 mg/dL (70-99) H Calcium Level 8.9 mg/dL (8.5-10.1) Total Bilirubin 0.2 mg/dL (0.2-1.0) Aspartate Amino Transferase (AST) 22 U/L (15-37) Alanine Aminotransferase (ALT) 21 U/L (14-59) Alkaline Phosphatase 70 U/L (46-116) Troponin I Quantitative < 0.017 ng/mL (0.000-0.055) Total Protein 6.3 g/dL (6.4-8.2) L Albumin 2.8 g/dL (3.4-5.0) L Albumin/Globulin Ratio 0.8 (1.0-1.7) L Laboratory Tests 04/30/19 23:55 Laboratory Tests 04/30/19 23:55 EKG EKG SINUS RHYTHM AND NO STEMI[] Interpretation Time: [address] GILLESPIE Radiology/Procedures Radiology/Procedures [] Impressions: [facility] [address] [place] [address] IMAGING REPORT Signed PATIENT: ALLISON MANUEL ACCOUNT: [id number] : 1995 LOCATION: ER AGE: 23 SEX: F EXAM STATUS: REG ER ORD. PHYSICIAN: ARRON LA APRN REASON: dizziness, htn, post PROCEDURE: CT HEAD WO CONTRAST STUDY: CT head without contrast INDICATION: Dizziness. Hypertension. . COMPARISON: None. TECHNIQUE: Axial CT imaging through the head without the use of intravenous contrast. Sagittal and coronal reformats were obtained. One or more of the following individualized dose reduction techniques were utilized for this examination: 1. Automated exposure control 2. Adjustment of the mA and/or kV according to patient size 3. Use of iterative reconstruction technique. FINDINGS: No acute intracranial hemorrhage. No mass effect, midline shift or hydrocephalus. Jeffers-white matter differentiation is maintained. Unremarkable calvarium. IMPRESSION: No acute intracranial abnormality identified by CT. Electronically signed by: NAVJOT SILVA MD (05/01/2019 12:44 AM) [facility] DICTATED and SIGNED BY: NAVJOT SILVA MD DATE: 05/01/19 0044 Course & Med Decision Making Course & Med Decision Making Alert and oriented. NIH is negative. Patient denies chest pain, shortness of air, pleuritic pain, numbness or tingling, dizziness, visual changes, weaknesses, Abdominal pain, nausea, vomiting, diarrhea, fever, dysuria. No calf tenderness or swelling. Abdomen soft and nontender. Lungs are clear to auscultation in all lobes. Patient's blood pressure upon my exam is 145/82. PERRLA. No extremity swelling. Patient states she has an upcoming appointment with her OB doctor next week. PERC negative. Blood work is unremarkable. Patient remains stable. Urinalysis is contaminated. Chest xray read by Dr Gillespie as no obvious acute findings. Dragon Disclaimer Dragon Disclaimer This electronic medical record was generated, in whole or in part, using a voice recognition dictation system. NIHSS Stroke Scale NIH Stroke Scale: NIH Stroke Scale Response (Comments) Value Level of Consciousness: 0 Alert/Responsive 0 LOC Questions: 0 Answers both correctly 0 LOC Commands: 0 Performs both tasks 0 Best Gaze: 0 Normal 0 Visual: 0 No visual loss 0 Facial Palsy: 0 Normal, symmetrical 0 Motor - Left Arm 0 No drift 0 Motor - Right Arm 0 No drift 0 Motor - Left Leg 0 No drift 0 Motor: Right Leg 0 No drift 0 Limb Ataxia: 0 Absent 0 Sensory: 0 No loss 0 Best Language: 0 Normal 0 Dysathria: 0 Normal 0 Extinction and Inattention: 0 Normal 0 Total 0 Departure Departure Impression: Primary Impression: Light headedness Additional Impression: UTI (urinary tract infection) Disposition: 01 HOME, SELF-CARE Condition: STABLE Referrals: NO PCP (PCP) Patient Instructions: General Headache Without Cause, Urinary Tract Infection Additional Instructions: Follow-up with primary care OB doctor as scheduled. Take Tylenol for your headache. Drink plenty of fluids. Scripts Cephalexin (KEFLEX) 500 Mg Capsule 1 CAP PO BID for 7 Days, #14 CAP 0 Refills Prov: ARRON LA APRN 05/01/19 Problem Qualifiers Additional Impression: UTI (urinary tract infection) Urinary tract infection type: site unspecified Hematuria presence: without hematuria Qualified Codes: N39.0 - Urinary tract infection, site not specified ARRON LA APRN May 01, 2019 00:10
[2019-05-01 00:11] LABS: CALCIUM 8.9 mg/dL (8.5-10.1); CREATININE 0.8 mg/dL (0.6-1.0); GFR 105.8; POTASSIUM 3.5 mmol/L (3.5-5.1)
[2019-05-01 00:12] LABS: PROTHROMBIN TIME PATIENT 13.6 SEC (11.7-14.0)
[2019-05-01 00:17] LABS: ALBUMIN 2.8 g/dL (3.4-5.0); ALBUMIN/GLOBULIN RATIO 0.8 (1.0-1.7); TOTAL BILIRUBIN 0.2 mg/dL (0.2-1.0); TOTAL PROTEIN 6.3 g/dL (6.4-8.2)
--- NOTE | 2019-05-01 00:47 | RAD ---
STUDY: CT head without contrast INDICATION: Dizziness. Hypertension. . COMPARISON: None. TECHNIQUE: Axial CT imaging through the head without the use of intravenous contrast. Sagittal and coronal reformats were obtained. One or more of the following individualized dose reduction techniques were utilized for this examination: 1. Automated exposure control 2. Adjustment of the mA and/or kV according to patient size 3. Use of iterative reconstruction technique. FINDINGS: No acute intracranial hemorrhage. No mass effect, midline shift or hydrocephalus. Jeffers-white matter differentiation is maintained. Unremarkable calvarium. IMPRESSION: No acute intracranial abnormality identified by CT. Electronically signed by: NAVJOT SILVA MD (05/01/2019 12:44 AM) [facility]
[2019-05-01] MEDS ORDERED: CEPH-264 PO (01:06)
[2019-05-01 01:34] VITALS: BP 149/95
--- NOTE | 2019-05-01 02:46 | RAD ---
Study: CHEST PA LATERAL Indication: Dizziness and hypertension. Comparison: None. Findings: Unremarkable lungs, cardiomediastinal silhouette and misa. Grossly intact osseous structures. Unremarkable visualized upper abdomen. Impression: No acute abnormality of the chest. Electronically signed by: NAVJOT SILVA MD (05/01/2019 2:43 AM) [facility]
--- NOTE | 2019-05-03 07:33 | EKG ---
[facility] [address] [place] [address] Test Date: 2019-04-30 Test Time: 23:38:36 Pat Name: ALLISON MANUEL Department: Room: Gender: F Service Provider: : 1995 Requested By: ARRON LA Order Number: [id number] Reading MD: Measurements Intervals Carpenter Rate: 93 P: 28 OH: 132 QRS: 12 QRSD: 74 T: 16 QT: 354 QTc: 443 Interpretive Statements No previous ECG available for comparison
== END 2019-05-01 01:15 | disposition home or self-care (01) ==
LOC: ER 22:33
DX: O86.20 Urinary tract infection following delivery, unspecified (principal); R42 Dizziness and giddiness; Z98.890 Other specified postprocedural states
CPT/HCPCS: 36415; 70450; 71046; 80053; 81001; 84484; 85025; 85610; 87086; 93005; 99285

== ENCOUNTER 2019-05-05 09:35 | Emergency (ER) | payer MEDICAID ==
[~2019-05-05] VITALS: Ht 167.6 cm; Wt 94.4 kg
[~2019-05-05 09:35] MED LIST changes: +CEPH-264 PO
[2019-05-05] MEDS ORDERED: LISI10TA2 PO (10:00)
--- NOTE | 2019-05-05 10:01 | PHYS DOC ---
Past Medical History Past Medical History: No Pertinent History, Other Additional Past Medical Histor: PRE ECLAMPSIA Past Surgical History: No Surgical History Alcohol Use: None Drug Use: None Adult General Chief Complaint Chief Complaint: HYPERTENSION HPI HPI Patient is a 23 year old female with history of preeclampsia who presents with complaint of high blood pressure. Patient had normal vaginal delivery on April 26 because of preeclampsia at gestational age of 37 weeks but continues to elevation of blood pressure. Patient states she had blood pressure of 180s over 110 and 120s and seen by [employer] today who recommended to follow up with primary care physician for treatment of high blood pressure but she doesn't have a primary care physician. Patient denies any symptoms. Patient was seen in this emergency room on April 30 with complaining of headache and elevation of blood pressure and had unremarkable extensive evaluation including CT head and labs. Patient has family history of hypertension and denies history of preeclampsia in her previous 6 years ago. Review of Systems Review of Systems Constitutional: Denies fever or chills [] Eyes: Denies change in visual acuity, redness, or eye pain [] HENT: Denies nasal congestion or sore throat [] Respiratory: Denies cough or shortness of breath [] Cardiovascular: No additional information not addressed in HPI [] GI: Denies abdominal pain, nausea, vomiting, bloody stools or diarrhea [] : Denies dysuria or hematuria [] Musculoskeletal: Denies back pain or joint pain [] Integument: Denies rash or skin lesions [] Neurologic: Denies headache, focal weakness or sensory changes [] Endocrine: Denies polyuria or polydipsia [] All other systems were reviewed and found to be within normal limits, except as documented in this note. Current Medications Current Medications Current Medications Medications (Trade) Dose Ordered Sig/[facility] Start Time Stop Time Status Last Admin Dose Admin Clonidine HCl (Catapres) 0.1 mg 1X ONCE 05/05/19 10:15 05/05/19 10:16 DC 05/05/19 10:18 0.1 MG Allergies Allergies Allergies Coded Allergies Type Severity Reaction Last Updated Verified No Known Drug Allergies 03/05/16 No Physical Exam Physical Exam Constitutional: Well developed, well nourished, no acute distress, non-toxic appearance. []., bilateral external ears normal, oropharynx moist, no oral exudates, nose normal. [] Eyes: PERRLA, EOMI, conjunctiva normal, no discharge. [] Neck: Normal range of motion, no tenderness, supple, no stridor. [] Cardiovascular:Heart rate regular rhythm, no murmur [] Lungs & Thorax: Bilateral breath sounds clear to auscultation [] Abdomen: Bowel sounds normal, soft, no tenderness, no masses, no pulsatile masses. [] Skin: Warm, dry, no erythema, no rash. [] Back: No tenderness, no CVA tenderness. [] Extremities: No tenderness, no cyanosis, no clubbing, ROM intact, no edema. [] Neurologic: Alert and oriented X 3, normal motor function, normal sensory function, no focal deficits noted. [] Psychologic: Affect normal, judgement normal, mood normal. [] Current Patient Data Vital Signs Vital Signs Date Time Temp Pulse Resp B/P (MAP) Pulse Ox O2 Delivery O2 Flow Rate FiO2 05/05/19 10:42 70 16 98 05/05/19 10:18 167/110 05/05/19 09:40 98.4 Room Air 98.4 EKG EKG [] Radiology/Procedures Radiology/Procedures [] Course & Med Decision Making Course & Med Decision Making Evaluation of patient in ER showed 23-year-old female patient with history of preeclampsia and delivery at 37 weeks of gestation on April 26, 2019 with elevation of blood pressure for several days. Patient had complete unremarkable evaluation in this emergency room on April 30. patient had blood pressure of 186/106 at arrival to ER that improved with clonidine. Prescription for lisinopril was given and patient was advised to follow-up with her primary care physician for managing hypertension. I've spoken with the patient and/or caregivers. I've explained the patient's condition, diagnosis and treatment plan based on information available to me at this time. I've answered the patient's and/or caregivers questions and addressed any concerns. The patient and/or caregivers have a good understanding the patient's diagnosis, condition and treatment plan as can be expected at this point. Vital signs have been stabilized. The patient's condition is stable for discharge from the emergency department. The patient will pursue further outpatient evaluation with her primary care provider or other designated consulting physician as outlined in the discharge instructions. Patient and/or caregivers are agreeable to this plan of care and follow-up instructions have been explained in detail. The patient and/or caregivers have received these instructions in written format and expressed understanding of these discharge instructions. The patient and her caregivers are aware that if any significant change in condition or worsening of symptoms should prompt him to immediately return to this of the closest emergency department. If an emergent department is not readily available I would en courage him to call 911. Rey Disclaimer Dragon Disclaimer This electronic medical record was generated, in whole or in part, using a voice recognition dictation system. Departure Departure Impression: Primary Impression: Elevated blood pressure reading without diagnosis of hypertension Disposition: HOME, SELF-CARE (1000) Condition: STABLE Referrals: NO PCP (PCP) Patient Instructions: Form - Blood Pressure Record Sheet, How to Take Your Blood Pressure, [id number], Managing Your High Blood Pressure Additional Instructions: Do not eat salty food Follow-up with your primary care physician in 3-5 days Return to ER if not getting better Scripts Lisinopril (LISINOPRIL) 10 Mg Tablet 1 TAB PO DAILY, #30 TAB 1 Refill Prov: TAVO RICHARDS MD 05/05/19 TAVO RICHARDS MD May 05, 2019 10:01
[2019-05-05] MEDS ORDERED: cloNIDine HCL 0.1 MG TABLET PO ONE (10:15)
[2019-05-05 10:42] VITALS: BP 165/99
== END 2019-05-05 10:43 | disposition home or self-care (01) ==
LOC: ER 09:35
DX: O90.89 Other complications of the puerperium, not elsewhere classified (principal); R03.0 Elevated blood-pressure reading, without diagnosis of hypertension; Z98.890 Other specified postprocedural states
CPT/HCPCS: 99283